=== PATIENT | female | born 2000 | race Caucasian/White ===

== ENCOUNTER 2022-01-27 20:37 | Emergency (ER) | payer SELFPAY ==
[2022-01-27] MEDS ORDERED: Famotidine/PF 20 mg/2ml Vial ONE (21:08)
[2022-01-27] MEDS ORDERED: Ondansetron PF 4 MG/2 ML Vial ONE (21:08)
[2022-01-27] MEDS ORDERED: Dicyclomine 20 MG TAB ONE (21:12)
[2022-01-27] MEDS ORDERED: Metoclopramide HCl 10 MG/2 ML VIAL ONE (21:33)
== END 2022-01-27 23:06 | disposition home or self-care (01) ==
LOC: CSHERS 20:37
DX: R11.2 Nausea with vomiting, unspecified (principal); R19.7 Diarrhea, unspecified; I10 Essential (primary) hypertension; R10.84 Generalized abdominal pain
CPT/HCPCS: 96365; 96375; J2405; J2765; S0028